=== PATIENT | male | born 2005 | race Caucasian/White ===

== ENCOUNTER 2024-12-26 19:44 | Emergency (ER) | payer SELFPAY ==
[2024-12-26] MEDS: Acetaminophen 500 MG Tab PO ONE (20:32)
[2024-12-26] MEDS: Diphtheria,Pertussis(Acell),Tetanus Vaccine 0.5 ML Syringe IM ONE (20:33)
== END 2024-12-26 21:52 | disposition home or self-care (01) ==
LOC: MW.ED 19:44
DX: S67.191A Crushing injury of left index finger, initial encounter (principal); Z79.899 Other long term (current) drug therapy; Z75.3 Unavailability and inaccessibility of health-care facilities; Z23 Encounter for immunization; W22.8XXA Striking against or struck by other objects, initial encounter; Y93.89 Activity, other specified
CPT/HCPCS: 12001; 73140; 90471; 90715; 99283; A9270